=== PATIENT | male | born 1960 | race Caucasian/White ===

== ENCOUNTER 2017-11-07 20:45 | Emergency (ER) | payer BC, OTHER ==
[~2017-11-07] VITALS: Ht 180.3 cm; Wt 92.0 kg
[2017-11-07 20:54] VITALS: BP 149/90; PULSE 68; TEMP 36.4; O2SAT 96; Ht 180.3 cm; Wt 92.0 kg
[2017-11-07] MEDS ORDERED: PERCOCET HOME PACK PO ONE (21:15)
--- NOTE | 2017-11-07 21:16 | EMERGENCY ROOM VISIT NOTE ---
History First contact with patient: 20:56 Chief Complaint: DENTAL PAIN Stated Complaint: SEVERE PAIN FROM ROOT CANAL Nursing Triage Summary: Patient reports that he had a root canal done today. Patient notes that the entire left side of his face hurts, throbbing pain. History of Present Illness The patient is a 57 year old male who presents to the Emergency Room with complaints of severe dental pain. The patient reports that he had a root canal performed today due to a dental abscess. He reports that he has had persistent pain in the left lower jaw radiating down the side of the face into the neck. He tried calling the dentist with no answer. He has taken Aleve for the pain without relief. He rates the discomfort an 8/10. The patient does report he has had root canals in the past and typically has full relief of the pain following the procedure. He is not currently taking antibiotics. He denies any facial swelling or drainage. Review of Systems A 6 point review of systems was reviewed with the patient with pertinent positives and negatives as per history of present illness. All else were negative. Social History Smoking Status: Never Smoker Current/Historical Medications Scheduled Doxazosin Mesylate (Cardura), 2 MG PO BID Fluticasone Propionate (Nasal) (Flonase Allergy Relief), 2 SPRAYS KAREN DAILY Multivitamin (Multivitamin), 1 TAB PO DAILY Omeprazole (Prilosec), 20 MG PO DAILY Paroxetine (Paxil), 20 MG PO DAILY Scheduled PRN Naproxen (Aleve), 220 MG PO UD PRN for Pain Oxycodone/Acetaminophen 5MG/325MG (Percocet 5MG/325MG), 1-2 TABS PO Q4H PRN for Pain Physical Exam Vital Signs Date Time Temp Pulse Resp B/P (MAP) Pulse Ox O2 Delivery O2 Flow Rate FiO2 11/07/17 20:54 36.4 68 19 149/90 96 Room Air Physical Exam VITALS: Vitals are noted on the nurse's note and reviewed by myself. Vital signs stable. GENERAL: This is a 57-year-old male, in no acute distress, nondiaphoretic, well- developed well-nourished. SKIN: The skin was without rashes. EARS: External auditory canals clear, tympanic membranes pearly hadley without erythema or effusion bilaterally. EYES: Pupils equal round and reactive to light and accommodation. MOUTH: Mucous membranes moist. There is no significant redness or swelling of the gums. There is no drainage from the teeth. NECK: Supple without nuchal rigidity. No lymphadenopathy. HEART: Regular rate and rhythm without murmurs gallops or rubs. LUNGS: Clear to auscultation bilaterally without wheezes, rales or rhonchi. NEURO: Patient was alert and oriented to person place and time. Medical Decision & Procedures Medications Administered Medications (Trade) Dose Ordered Sig/Mae Route Start Time Stop Time Status Last Admin Dose Admin Oxycodone/ Acetaminophen (Percocet 5/ 325MG Home Pack) 1 homepack UD ONCE PO 11/07/17 21:15 11/07/17 21:16 DC 11/07/17 21:15 1 HOMEPACK Medical Decision Differential diagnosis includes dental infection, dental abscess, facial cellulitis, Adan angina, among others. The patient was evaluated as above. There was no evidence of a significant dental abscess. No evidence of Adan angina. The patient's root canal may not have been successful. He was given a home pack and prescription for Percocet. He was instructed to call his dentist tomorrow to schedule follow- up. Conservative measures were discussed with the patient. He verbalized understanding of my assessment and treatment plan and was discharged home in good condition. Medication Reconcilliation Current Medication List: was personally reviewed by me Blood Pressure Screening Patient's blood pressure: Elevated blood pressure Blood pressure disposition: Elevated BP felt to be situational Impression Primary Impression: Dentalgia Departure Information Dispostion Home / Self-Care Condition GOOD Prescriptions Oxycodone/Acetaminophen 5MG/325MG (PERCOCET 5MG/325MG) Tab 1-2 TABS PO Q4H Y for Pain, #10 TAB For Initial Treatment Prov: Trisha Thompson .CATE 11/07/17 Referrals No Doctor, Assigned (PCP) Patient Instructions My [facility] Additional Instructions You have been treated in the Emergency Department for Dental Pain. You have received pain medicine in the emergency department which impairs your ability to operate a vehicle. It is illegal for you to drive after receiving these medicines. You have been prescribed Percocet to be used for pain control. This is a narcotic medication. You cannot drive or consume alcohol while on this medicine. This medicine should only be used for pain that cannot be controlled with [id number] pain medicines. For pain control, you can use the following kkos-qvl-gsevala medicines (if >12 yo): - Regular strength (325mg/tab) Tylenol (acetaminophen) 2 tabs every 4-6 hours as needed. Do not exceed 12 tablets in a 24 hour period. Avoid taking more than 4 grams (4000 mg) of Tylenol per day. This includes any other sources of acetaminophen you may take on a regular basis. - Regular strength (200 mg/tab) Advil (ibuprofen) 1-2 tabs every 4-6 hours as needed. Do not exceed a dose of 3200 mg per day. Refrain from smoking cigarettes or using chewing tobacco until you have been evaluated by your dentist. Keeping beverages lukewarm and consuming soft foods can decrease your pain. Warm compresses over the affected area may offer some relief. You should contact her dentist tomorrow morning to schedule a follow-up appointment. Return to the emergency department if you develop the following symptoms despite treatment course outlined above: fever, intractable pain, increased redness, swelling, or purulent discharge.
[2017-11-07] MEDS ORDERED: PARO1TAB27 PO (21:18)
[2017-11-07] MEDS ORDERED: DOXA2TAB PO (21:18)
[2017-11-07] MEDS ORDERED: OMEP20CA9 PO (21:18)
[2017-11-07] MEDS ORDERED: NAPR1TAB9 PO (21:18)
[2017-11-07] MEDS ORDERED: FLUT0.15 NAE (21:18)
[2017-11-07] MEDS ORDERED: MULT-506 PO (21:18)
[2017-11-07] MEDS ORDERED: OXYC-57 PO (21:22)
== END 2017-11-07 21:31 | disposition home or self-care (01) ==
LOC: C.EDB 20:46 → C.EDD 21:31
DX: K08.89 Other specified disorders of teeth and supporting structures (principal)

== ENCOUNTER 2018-03-02 08:27 | Emergency (ER) | payer OTHER, BC ==
[~2018-03-02] VITALS: Ht 180.3 cm; Wt 90.4 kg
[~2018-03-02 08:27] MED LIST: DOXA2TAB PO; FLUT0.15 NAE; MULT-506 PO; NAPR1TAB9 PO; OMEP20CA9 PO; OXYC-57 PO; PARO1TAB27 PO
[2018-03-02 08:28] VITALS: TEMP 36.4; Ht 180.3 cm; Wt 90.4 kg
[2018-03-02] MEDS ORDERED: IBUP-1428 PO (09:03)
[2018-03-02] MEDS ORDERED: ACET-1256 PO (09:03)
[2018-03-02] MEDS ORDERED: ACET-1693 PO (09:03)
[2018-03-02] MEDS ORDERED: PANT40TA PO (09:12)
--- NOTE | 2018-03-02 09:38 | DIAGNOSTIC IMAGING REPORT ---
LUMBAR SPINE WITHOUT HISTORY: 58 years-old Male fall at work; R sided lumbar and post illiac crest pain acute right-sided lumbar spine pain status post fall COMPARISON: None available TECHNIQUE: Multiple axial CT images of the lumbar spine were obtained without IV contrast. Coronal and sagittal reformatted images were obtained from the axial data set and were submitted for review. A dose lowering technique was used consistent with the principals of CHRISTINA. FINDINGS: There is no acute fracture or subluxation. The imaged ribs, sacrum and iliac bones also appear intact. The imaged paraspinal, intra-abdominal and intrapelvic structures demonstrate no acute abnormality. Atherosclerosis of the iliac arteries. No pathologic adenopathy. Moderate multilevel endplate spurring with mild multilevel facet arthrosis. Mild intervertebral disc space narrowing at L1-L2. T12-L1: No central canal or foraminal narrowing. L1-L2: Small posterior disc bulge with minimal facet arthrosis. Mild flattening of the ventral thecal sac without significant central canal or foraminal narrowing. L2-L3: Minimal facet arthrosis without significant central canal or foraminal narrowing. L3-L4: Small posterior disc bulge with mild facet arthrosis and ligamentum flavum thickening causes mild central canal and mild inferior bilateral foraminal narrowing. L4-L5: Small to moderate circumferential annular disc bulge with mild facet arthrosis and ligamentum flavum thickening. There is mild central canal, mild left and mild to moderate right foraminal narrowing. L5-S1: Small posterior disc bulge with mild facet arthrosis. No central canal or significant foraminal narrowing. IMPRESSION: 1. No acute fracture or subluxation. 2. Moderate multilevel endplate spurring with mild multilevel facet arthrosis and ligamentum flavum thickening. Mild annular disc bulging is seen at several levels as above. 3. At L4-L5, circumferential annular disc bulge with facet arthrosis and ligamentum flavum thickening causes mild central canal, mild left and mild to moderate right foraminal narrowing. The above report was generated using voice recognition software. It may contain grammatical, syntax or spelling errors. Electronically signed by: Bong Walter M.D. 03/02/2018 9:37 AM Dictated Date/Time: 03/02/2018 9:30 AM
--- NOTE | 2018-03-02 10:10 | DIAGNOSTIC IMAGING REPORT ---
PELVIS 1 OR 2 VIEW ROUTINE CLINICAL HISTORY: fall; posterior iliac crest pain. COMPARISON STUDY: No previous studies for comparison. FINDINGS: Sacroiliac joints and symphysis pubis are intact. There is no acute fracture within the pelvis or hips. There is mild osteoarthritis of both hips. Pelvic calcifications likely reflect phleboliths. Cortical irregularity of the right superior pubic ramus may reflect an old fracture. IMPRESSION: No acute fracture within the pelvis or hips. Electronically signed by: Arnie Douglass M.D. 03/02/2018 10:09 AM Dictated Date/Time: 03/02/2018 10:07 AM
[2018-03-02] MEDS ORDERED: OXYC-57 PO (10:21)
[2018-03-02 10:35] VITALS: BP 133/84; PULSE 56; O2SAT 97
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
== END 2018-03-02 10:36 | disposition home or self-care (01) ==
LOC: C.EDB 08:28 → C.EDA 10:36
DX: M54.5 Low back pain (principal); R10.30 Lower abdominal pain, unspecified; W19.XXXA Unspecified fall, initial encounter; Y92.89 Other specified places as the place of occurrence of the external cause; Y99.0 Civilian activity done for income or pay; Z87.81 Personal history of (healed) traumatic fracture; Z79.899 Other long term (current) drug therapy